=== PATIENT | male | born 1980 | race Caucasian/White ===

== ENCOUNTER → 2020-02-29 13:45 | Emergency (ER) | payer SELFPAY | END | disposition left against medical advice (07) | LOC: M ED 13:45 | DX: Z53.21 Procedure and treatment not carried out due to patient leaving prior to being seen by health care provider (principal) ==

== ENCOUNTER 2020-06-29 08:54 | Emergency (ER) | payer OTHER ==
[~2020-06-29] VITALS: Ht 172.7 cm; Wt 87.9 kg
[2020-06-29] MEDS ORDERED: ONDANSETRON 4MG/2ML VIAL IV ONE (09:15)
[2020-06-29] MEDS ORDERED: NS 1,000 ML IV ONE (09:15)
[2020-06-29 09:38] LABS: BASO % 0.3 % (0.0-1.0); EOS % 0.2 % (0.0-3.0); HEMATOCRIT 47.5 % (42.0-52.0); HEMOGLOBIN 15.5 g/dl (13.5-17.5); LYMPH # 1.4 10^3/uL (1.5-5.0); LYMPH % 14.9 % (24.0-44.0); MEAN CORPUSCULAR HEMOGLOBIN 28.7 pg (27.0-33.0); MEAN CORPUSCULAR HGB CONC 32.6 g/dl (32.0-36.5); MONO # 0.8 10^3/uL (0.0-0.8); MONO % 8.3 % (0.0-5.0); NEUTROPHILS # 7.2 10^3/uL (1.5-8.5); PLATELET COUNT, AUTOMATED 302 10^3/uL (150-450); WHITE BLOOD COUNT 9.5 10^3/uL (4.0-10.0)
[2020-06-29] MEDS: GASTROGRAFIN SOLUTION 30ML PO SCH ×2 (09:39→10:27)
--- NOTE | 2020-06-29 10:05 | ECGEPIP ---
[facility] - ED Test Date: 2020-06-29 Pat Name: JAEL XIE Department: Room: - Gender: Male [employer]: : 1980 Requested By: AJITH GÓMEZ Order Number: [id number] Reading MD: Carline Pride Measurements Intervals [place] Rate: 57 P: 49 NE: 186 QRS: 49 QRSD: 102 T: 22 QT: 434 QTc: 423 Interpretive Statements SINUS BRADYCARDIA No prior Electronically Signed on 06-29-2020 10:05:40 EST by Carline Pride
[2020-06-29 10:15] LABS: ALBUMIN 3.9 GM/DL (3.2-5.2); ALT/SGPT 31 U/L (12-78); BILIRUBIN,DIRECT 0.1 MG/DL (0.0-0.2); BILIRUBIN,TOTAL 0.3 MG/DL (0.2-1.0); BLOOD UREA NITROGEN 7 MG/DL (7-18); CALCIUM LEVEL 9.5 MG/DL (8.5-10.1); CARBON DIOXIDE LEVEL 29 MEQ/L (21-32); CHLORIDE LEVEL 105 MEQ/L (98-107); CK-MB VALUE MASS 1.9 NG/ML (<3.6); CPK CREATINE PHOSPHOKINASE 260 U/L (39-308); GLOMERULAR FILTRATION RATE > 60.0 (>60); GLUCOSE, FASTING 93 MG/DL (70-100); LIPASE 86 U/L (73-393); MB/CK RELATIVE INDEX 0.73 (< OR =4); POTASSIUM SERUM 4.3 MEQ/L (3.5-5.1); SODIUM LEVEL 138 MEQ/L (136-145); TOTAL PROTEIN 7.7 GM/DL (6.4-8.2); TROPONIN I < 0.02 NG/ML (< 0.10)
[2020-06-29] MEDS ORDERED: ISOVUE-370 76% 100ML VIAL As Ordered ONE (11:24)
[2020-06-29 12:12] VITALS: BP 138/73
--- NOTE | 2020-06-29 12:18 | REP ---
INDICATION: severe int abd pain r/o infectious or perf ulcer COMPARISON: None. TECHNIQUE: CT Scan of the abdomen and pelvis was performed with intravenous administration of 100 cc of Isovue 370, and oral contrast. FINDINGS: Lung bases: Unremarkable. Liver: Liver is mildly enlarged with a length of approximately 18.6 cm. There is an enhancing nodule inferiorly in the right lobe of the liver which probably represents a hemangioma approximately 1 cm in diameter. The Gallbladder: Unremarkable. Spleen: Normal. Adrenals: Normal. Pancreas: Normal. Kidneys: Normal. Small and large bowel: Unremarkable. Free fluid: None. Abdominal aorta: No aneurysm or dissection. Adenopathy: No significantly enlarged lymph nodes are seen. A few slightly prominent right-sided mesenteric lymph nodes measures 7 8 mm in diameter. Appendix: Not inflamed. Osseous structures: There are minor degenerative changes of the spine without compression deformity. Pelvis: No mass. IMPRESSION: Diffuse thickening of the right colon compatible with colitis. Few mildly prominent right-sided mesenteric lymph nodes. No free air or free fluid. Mild hepatomegaly. 1 cm nodule in the inferior right lobe of the liver most likely represents a hemangioma. <Electronically signed by Gabe Jalloh > 06/29/20 [id number]
--- NOTE | 2020-07-01 11:39 | ED PDOC ---
Post-Departure Follow-Up judy garcia faxed formal report of ct abd/p for fu Cirilo Baker MD Jul 01, 2020 11:39
== END 2020-06-29 12:38 | disposition home or self-care (01) ==
LOC: M ED 08:54
DX: R10.9 Unspecified abdominal pain (principal); R19.7 Diarrhea, unspecified; R93.2 Abnormal findings on diagnostic imaging of liver and biliary tract; K63.89 Other specified diseases of intestine; R00.1 Bradycardia, unspecified; F17.200 Nicotine dependence, unspecified, uncomplicated
CPT/HCPCS: 74177; 80048; 80076; 81001; 82550; 82553; 83690; 85025; 93005; 96361; 96374; 99284; J2405; Q9963; Q9967

== ENCOUNTER → 2020-07-09 | Outpatient (REF) | payer MEDICAID, OTHER ==
[2020-07-09 12:14] LABS: BASO # 0.1 10^3/uL (0.0-0.2); BASO % 0.6 % (0.0-1.0); EOS # 0.1 10^3/uL (0.0-0.5); EOS % 1.5 % (0.0-3.0); HEMATOCRIT 45.5 % (42.0-52.0); HEMOGLOBIN 15.1 g/dl (13.5-17.5); LYMPH # 1.6 10^3/uL (1.5-5.0); LYMPH % 20.5 % (24.0-44.0); MEAN CORPUSCULAR HEMOGLOBIN 29.7 pg (27.0-33.0); MEAN CORPUSCULAR HGB CONC 33.2 g/dl (32.0-36.5); MEAN CORPUSCULAR VOLUME 89.6 fl (80.0-96.0); MONO # 0.7 10^3/uL (0.0-0.8); NEUTROPHILS # 5.3 10^3/uL (1.5-8.5); NEUTROPHILS % 68.1 % (36.0-66.0); PLATELET COUNT, AUTOMATED 345 10^3/uL (150-450); RED BLOOD COUNT 5.08 10^6/uL (4.30-6.10); WHITE BLOOD COUNT 7.8 10^3/uL (4.0-10.0)
[2020-07-09 12:40] LABS: ALBUMIN 3.8 GM/DL (3.2-5.2); ALT/SGPT 32 U/L (12-78); BILIRUBIN,TOTAL 0.4 MG/DL (0.2-1.0); BLOOD UREA NITROGEN 10 MG/DL (7-18); CALCIUM LEVEL 9.4 MG/DL (8.5-10.1); CARBON DIOXIDE LEVEL 30 MEQ/L (21-32); CHLORIDE LEVEL 103 MEQ/L (98-107); CHOLESTEROL LEVEL 217 MG/DL (<200); CHOLESTEROL RISK RATIO 5.292 (<5); CREATININE FOR GFR 0.78 MG/DL (0.70-1.30); FREE T4 1.13 NG/DL (0.76-1.46); GLOMERULAR FILTRATION RATE > 60.0 (>60); GLUCOSE, FASTING 62 MG/DL (70-100); HDL CHOLESTEROL 41 MG/DL (>40); LDL CHOLESTEROL 143 MG/DL (<100); NON-HDL-C 176 MG/DL; POTASSIUM SERUM 4.7 MEQ/L (3.5-5.1); SODIUM LEVEL 138 MEQ/L (136-145); TOTAL PROTEIN 7.1 GM/DL (6.4-8.2); TRIGLYCERIDES LEVEL 164 MG/DL (<150)
[2020-07-09 13:21] LABS: HIV 1&2 SCREEN CENTAUR NEGATIVE (NEGATIVE)
[2020-07-09 13:43] LABS: HEPATITIS C VIRUS ABY INDEX > 11.0 INDEX (<0.8)
== END ==
LOC: M SFHCCLAY 09:30
PROVIDERS: ATTEND Nurse Practitioner Family
DX: F41.1 Generalized anxiety disorder (principal); F19.11 Other psychoactive substance abuse, in remission; Z13.220 Encounter for screening for lipoid disorders; Z13.1 Encounter for screening for diabetes mellitus

== ENCOUNTER → 2020-07-24 | Outpatient (CLI) | payer OTHER ==
--- NOTE | 2020-07-24 08:42 | REP ---
INDICATION: VENOUS INSUFFICIENCY COMPARISON: None. TECHNIQUE: Jalloh scale and color Doppler evaluation of the bilateral lower extremities using linear high frequency transducer. Reflux examination performed. FINDINGS: Ultrasound examination of the right and left lower extremity deep venous structures from the common femoral vein to the popliteal vein demonstrates normal compressibility flow and wave patterns in response to respiration and augmentation. There is no evidence for deep venous thrombosis. Further evaluation demonstrates no reflux through the bilateral deep or superficial venous systems. IMPRESSION: No evidence for deep venous thrombosis. No evidence for reflux disease. <Electronically signed by Prakash Licea > 07/24/20 [id number]
== END ==
LOC: M RAD 07:13
PROVIDERS: ATTEND Nurse Practitioner Family
DX: I87.2 Venous insufficiency (chronic) (peripheral) (principal)

== ENCOUNTER 2020-09-18 08:46 | Emergency (ER) | payer MEDICAID, OTHER ==
[~2020-09-18] VITALS: Ht 172.7 cm; Wt 78.9 kg
[2020-09-18] MEDS ORDERED: FLUO10CA16 (08:55)
--- NOTE | 2020-09-18 09:24 | REP ---
INDICATION: fall onto R elbow COMPARISON: None. TECHNIQUE: AP, lateral, bilateral oblique views of the right elbow. FINDINGS: No obvious acute fracture or dislocation. No definite elevated fat pad sign noted. No subcutaneous emphysema or foreign body. IMPRESSION: No obvious acute fracture or dislocation. <Electronically signed by Prakash Licea > 09/18/20 [id number]
[2020-09-18 10:17] VITALS: BP 124/80
== END 2020-09-18 10:20 | disposition home or self-care (01) ==
LOC: M ED 08:46
DX: S53.401A Unspecified sprain of right elbow, initial encounter (principal); S50.01XA Contusion of right elbow, initial encounter; W00.0XXA Fall on same level due to ice and snow, initial encounter; Y92.018 Other place in single-family (private) house as the place of occurrence of the external cause; I10 Essential (primary) hypertension; Z79.899 Other long term (current) drug therapy; F17.210 Nicotine dependence, cigarettes, uncomplicated

== ENCOUNTER → 2020-11-07 | Outpatient (REF) | payer OTHER ==
[~2020-11-07] MED LIST: FLUO10CA16
== END ==
LOC: M SFHCCLAY 15:11
PROVIDERS: ATTEND Nurse Practitioner Family
DX: F41.1 Generalized anxiety disorder (principal); F19.11 Other psychoactive substance abuse, in remission; Z53.8 Procedure and treatment not carried out for other reasons

== ENCOUNTER 2021-01-15 16:33 | Emergency (ER) | payer OTHER ==
[~2021-01-15] VITALS: Ht 172.7 cm; Wt 75.0 kg
[2021-01-15 17:47] VITALS: BP 173/98
[2021-01-15] MEDS ORDERED: LORazepam 1 MG TAB PO ONE (17:55)
== END 2021-01-15 19:34 | disposition home or self-care (01) ==
LOC: M ED 16:33
DX: F41.9 Anxiety disorder, unspecified (principal); E78.9 Disorder of lipoprotein metabolism, unspecified; M50.30 Other cervical disc degeneration, unspecified cervical region; F11.10 Opioid abuse, uncomplicated; F17.210 Nicotine dependence, cigarettes, uncomplicated

== ENCOUNTER → 2021-05-12 | Outpatient (CLI) | payer OTHER | LOC: M OUTALCOH 07:49 | PROVIDERS: ATTEND Psychiatry & Neurology Psychiatry | DX: F13.10 Sedative, hypnotic or anxiolytic abuse, uncomplicated (principal) ==

== ENCOUNTER → 2021-06-17 | Outpatient (RCR) | payer OTHER ==
[~2021-06-17] MED LIST changes: -FLUO10CA16; +FLUO10CA18
== END ==
LOC: M OUTALCOH 05-20 14:12
PROVIDERS: ATTEND Psychiatry & Neurology Psychiatry
DX: F13.10 Sedative, hypnotic or anxiolytic abuse, uncomplicated (principal)

== ENCOUNTER 2021-07-08 09:00 | Outpatient (RCR) | payer OTHER ==
[~2021-07-08 09:00] MED LIST changes: +FLUO10CA16; -FLUO10CA18
== END 2021-07-18 ==
LOC: M OUTALCOH 09:00
PROVIDERS: ATTEND Psychiatry & Neurology Psychiatry
DX: F13.10 Sedative, hypnotic or anxiolytic abuse, uncomplicated (principal)

== ENCOUNTER → 2021-08-18 | Outpatient (RCR) | payer OTHER ==
[~2021-08-18] MED LIST changes: -FLUO10CA16; +FLUO10CA18
== END ==
LOC: M OUTALCOH 07-29 12:08
PROVIDERS: ATTEND Psychiatry & Neurology Psychiatry
DX: F13.20 Sedative, hypnotic or anxiolytic dependence, uncomplicated (principal)

== ENCOUNTER 2021-09-11 09:00 | Outpatient (RCR) | payer OTHER | END 2021-09-15 | LOC: M OUTALCOH 09:00 | PROVIDERS: ATTEND Psychiatry & Neurology Psychiatry | DX: F13.20 Sedative, hypnotic or anxiolytic dependence, uncomplicated (principal) ==

== ENCOUNTER 2021-10-15 15:00 | Outpatient (RCR) | payer OTHER | END 2021-10-16 | LOC: M OUTALCOH 15:00 | PROVIDERS: ATTEND Psychiatry & Neurology Psychiatry | DX: F13.20 Sedative, hypnotic or anxiolytic dependence, uncomplicated (principal) ==

== ENCOUNTER 2021-11-13 09:00 | Outpatient (RCR) | payer OTHER | END 2021-11-15 | LOC: M OUTALCOH 09:00 | PROVIDERS: ATTEND Psychiatry & Neurology Psychiatry | DX: F13.20 Sedative, hypnotic or anxiolytic dependence, uncomplicated (principal) ==

== ENCOUNTER 2021-12-11 13:00 | Outpatient (RCR) | payer OTHER | END 2021-12-16 | LOC: M OUTALCOH 13:00 | PROVIDERS: ATTEND Psychiatry & Neurology Psychiatry | DX: F13.20 Sedative, hypnotic or anxiolytic dependence, uncomplicated (principal) ==

== ENCOUNTER 2022-01-07 09:00 | Outpatient (RCR) | payer OTHER | END 2022-01-15 | LOC: M OUTALCOH 09:00 | PROVIDERS: ATTEND Psychiatry & Neurology Psychiatry | DX: F13.20 Sedative, hypnotic or anxiolytic dependence, uncomplicated (principal) ==

== ENCOUNTER 2022-02-10 10:00 | Outpatient (RCR) | payer OTHER | END 2022-02-15 | LOC: M OUTALCOH 10:00 | PROVIDERS: ATTEND Psychiatry & Neurology Psychiatry | DX: F13.20 Sedative, hypnotic or anxiolytic dependence, uncomplicated (principal) ==

== ENCOUNTER 2023-07-20 13:42 | Emergency (ER) | payer MEDICAID, OTHER, SELFPAY ==
[~2023-07-20] VITALS: Ht 172.7 cm; Wt 85.3 kg
[2023-07-20] MEDS ORDERED: BUPR1FIL (13:48)
[2023-07-20] MEDS ORDERED: [UNRECOGNIZED DRUG - CODE] (13:48)
[2023-07-20] MEDS ORDERED: HYDR-3490 (13:48)
[2023-07-20] MEDS ORDERED: NICOTINE 21MG/24HR 1 EA TRANSDERMAL TD ONE (16:40)
[2023-07-20 16:42] LABS: HEMATOCRIT 42.4 % (42.0-52.0); HEMOGLOBIN 14.9 g/dl (13.5-17.5); MEAN CORPUSCULAR HEMOGLOBIN 30.5 pg (27.0-33.0); MEAN CORPUSCULAR HGB CONC 35.1 g/dl (32.0-36.5); MEAN CORPUSCULAR VOLUME 86.7 fl (80.0-96.0); PLATELET COUNT, AUTOMATED 311 10^3/uL (150-450); RED BLOOD COUNT 4.89 10^6/uL (4.30-6.10); WHITE BLOOD COUNT 8.1 10^3/uL (4.0-10.0)
[2023-07-20 17:09] LABS: ETHYL ALCOHOL (ETHANOL) < 0.003 % (0.000-0.010)
[2023-07-20 17:11] LABS: ALBUMIN 3.9 G/DL (3.2-5.2); ALKALINE PHOSPHATASE 114 U/L (46-116); ALT/SGPT 31 U/L (7.0-40); AST/SGOT 15 U/L (<34); BILIRUBIN,DIRECT < 0.1 MG/DL (<0.4); BILIRUBIN,TOTAL 0.3 MG/DL (0.3-1.2); BLOOD UREA NITROGEN 18 MG/DL (9-23); CALCIUM LEVEL 9.4 MG/DL (8.5-10.1); CARBON DIOXIDE LEVEL 29 MMOL/L (20-31); CHLORIDE LEVEL 106 MMOL/L (98-107); CREATININE FOR GFR 0.68 MG/DL (0.70-1.30); GLOMERULAR FILTRATION RATE > 60.0 (>60); GLUCOSE, FASTING 95 MG/DL (60-100); POTASSIUM SERUM 4.4 MMOL/L (3.5-5.1); SALICYLATE LEVEL < 3.0 MG/DL (<30); SODIUM LEVEL 139 MMOL/L (136-145); TOTAL PROTEIN 6.8 G/DL (5.7-8.2)
[2023-07-20 17:15] LABS: THYROID STIMULATING HORMONE 0.887 uIU/ML (0.55-4.78)
[2023-07-20 17:21] LABS: BARBITURATES URINE NEGATIVE (NEGATIVE); BENZODIAZEPINES URINE NEGATIVE (NEGATIVE); CANNABINOIDS URINE NEGATIVE (NEGATIVE); COCAINE METABOLITE URINE NEGATIVE (NEGATIVE); METHADONE URINE NEGATIVE (NEGATIVE); OPIATES URINE NEGATIVE (NEGATIVE); PHENCYCLIDINE URINE NEGATIVE (NEGATIVE)
[2023-07-20 17:23] LABS: AMPHETAMINES LEVEL URINE POSITIVE (NEGATIVE)
[2023-07-20 18:38] VITALS: BP 144/71; TEMP 97.1; O2SAT 99
== END 2023-07-20 18:41 | disposition home or self-care (01) ==
LOC: M ED 13:42
DX: F19.10 Other psychoactive substance abuse, uncomplicated (principal); F41.9 Anxiety disorder, unspecified; E78.5 Hyperlipidemia, unspecified; M43.00 Spondylolysis, site unspecified; F17.200 Nicotine dependence, unspecified, uncomplicated; Z11.52 Encounter for screening for COVID-19

== ENCOUNTER → 2024-06-05 | Outpatient (CLI) | payer BC ==
[~2024-06-05] MED LIST changes: +BUPR1FIL; +FLUO-290; -FLUO10CA18; +HYDR-3490; +[UNRECOGNIZED DRUG - CODE]
== END ==
LOC: M OUTALCOH 07:52
PROVIDERS: ATTEND Psychiatry & Neurology Psychiatry
DX: F13.20 Sedative, hypnotic or anxiolytic dependence, uncomplicated (principal)

== ENCOUNTER 2024-08-25 12:15 | Emergency (ER) | payer BC ==
[~2024-08-25] VITALS: Ht 172.7 cm; Wt 88.0 kg
[2024-08-25 12:20] VITALS: BP 138/78; TEMP 98.1; O2SAT 98
[2024-08-25] MEDS ORDERED: IBUP200T46 PO (12:33)
[2024-08-25] MEDS ORDERED: ACET-683 PO (12:33)
== END 2024-08-25 16:10 | disposition left against medical advice (07) ==
LOC: M ED 12:15
DX: Z53.21 Procedure and treatment not carried out due to patient leaving prior to being seen by health care provider (principal)

== ENCOUNTER → 2024-10-19 | Outpatient (CLI) | payer BC ==
[~2024-10-19] MED LIST changes: +ACET-683 PO; +IBUP200T46 PO
== END ==
LOC: M OUTALCOH 13:04
PROVIDERS: ATTEND Psychiatry & Neurology Psychiatry
DX: Z03.89 Encounter for observation for other suspected diseases and conditions ruled out (principal)